=== PATIENT | female | born 1960 | race Caucasian/White ===

== ENCOUNTER → 2016-06-28 | Outpatient (CLI) | payer BC, OTHER ==
[~2016-06-28] MED LIST: ACET-1600 PO; ESTR1PAT10 TD; PROG100C4 PO
[2016-06-28 11:03] LABS: BLOOD UREA NITROGEN 13 mg/dL (7-18)
== END | disposition home or self-care (01) ==
LOC: STAR 09:54
PROVIDERS: ATTEND Orthopaedic Surgery
DX: Z01.818 Encounter for other preprocedural examination (principal); M17.12 Unilateral primary osteoarthritis, left knee
CPT/HCPCS: 36415; 80048; 81003; 85025; 87081; 93005

== ENCOUNTER 2016-07-10 05:36 | Inpatient (IN) | payer BC, OTHER ==
[2016-06-28 10:16] VITALS: BP 124/81
[~2016-07-10] VITALS: Ht 167.6 cm; Wt 77.5 kg
[2016-07-10] MEDS ORDERED: VANCOMYCIN PER PHARMACY MC PRN (06:00)
[2016-07-10] MEDS ORDERED: VANCOMYCIN 1,400 MG in SODIUM CHLORIDE 0.9% 250 ML IV ONE (06:00)
[2016-07-10] MEDS ORDERED: LACTATED RINGERS 1,000 ML IV SCH (06:07)
[2016-07-10] MEDS ORDERED: ROPIvacaine/PF 0.5%, 30 ML ONE (06:15)
[2016-07-10] MEDS ORDERED: morphine SULFATE/PF 1 MG/ML, 10ML ONE (06:24)
[2016-07-10] MEDS ORDERED: TRANEXAMIC ACID 100 MG/ML, 10ML ONE (06:24)
[2016-07-10] MEDS ORDERED: ROPIvacaine/PF 0.2%, 20 ML ONE (06:24)
[2016-07-10] MEDS ORDERED: KETOROLAC 60 MG/2 ML ONE (06:24)
[2016-07-10] MEDS ORDERED: EPINEPHRINE 1 MG/ML, 1ML ONE (06:25)
[2016-07-10] MEDS ORDERED: VANCOMYCIN 1,000 MG ONE (06:25)
[2016-07-10] MEDS ORDERED: NEOSPORIN OINT, 15GM ONE (06:25)
[2016-07-10] MEDS ORDERED: MIDAZOLAM 1 MG/ML, 2ML ONE (06:26)
[2016-07-10] MEDS ORDERED: FENTANYL PF 250 MCG/5ML ONE (06:26)
[2016-07-10] MEDS ORDERED: SCOPOLAMINE PATCH, 1.5MG PATCH.TD72 TD ONE (06:49)
[2016-07-10] MEDS ORDERED: CEFAZOLIN 1,000 MG ONE (07:05)
[2016-07-10] MEDS ORDERED: PROPOFOL 10 MG/ML, 20ML ONE (07:05)
[2016-07-10] MEDS ORDERED: DEXAMETHASONE 4 MG/ML, 1ML ONE (07:05)
[2016-07-10] MEDS ORDERED: ONDANSETRON 2MG/ML, 2ML ONE (07:05)
[2016-07-10] MEDS ORDERED: ROCURONIUM 10 MG/ML ONE (07:05)
[2016-07-10] MEDS ORDERED: METOCLOPRAMIDE 5 MG/ML, 2ML IV PRN (08:00)
[2016-07-10] MEDS ORDERED: ONDANSETRON 2MG/ML, 2ML IVPush PRN (08:00)
[2016-07-10] MEDS ORDERED: LABETALOL 5MG/ML, 20ML IV PRN (08:00)
[2016-07-10] MEDS ORDERED: OXYcodone 5 MG/5 ML ORAL.SOL UDC PO PRN (08:00)
[2016-07-10] MEDS ORDERED: hydrALAzine 20 MG/ML, 1ML IV PRN (08:00)
[2016-07-10] MEDS ORDERED: MEPERIDINE/PF 25MG/0.5ML IVPush PRN (08:00)
[2016-07-10] MEDS ORDERED: PROMETHAZINE 25 MG/ML, 1ML IV PRN (08:00)
[2016-07-10] MEDS ORDERED: MEPERIDINE/PF 25MG/0.5ML ONE (08:55)
[2016-07-10] MEDS ORDERED: HYDROmorphone 1 MG/ML, 1ML ONE ×2 (08:55→09:27)
[2016-07-10] MEDS ORDERED: FENTANYL PF 100 MCG/2ML ONE (08:55)
[2016-07-10] MEDS ORDERED: OXYcodone 5 MG/5 ML ORAL.SOL UDC ONE (08:56)
[2016-07-10] MEDS: HYDROmorphone 1 MG/ML, 1ML IV PRN ×4 (09:01→09:58)
[2016-07-10] MEDS: FENTANYL PF 100 MCG/2ML IV PRN ×2 (09:10→09:20)
[2016-07-10] MEDS ORDERED: DIAZEPAM 5 MG/ML, 2ML ONE (10:17)
[2016-07-10] MEDS ORDERED: DIAZEPAM 5 MG/ML, 2ML IV ONE (10:30)
[2016-07-10 10:51] VITALS: BP 106/70
[2016-07-10] MEDS ORDERED: MAGNESIUM HYDROXIDE 8%, 30ML UDC PO PRN (11:00)
[2016-07-10] MEDS ORDERED: ZOLPIDEM 5MG TABLET PO PRN (11:00)
[2016-07-10] MEDS ORDERED: LORazepam 2 MG/ML, 1ML IV PRN (11:00)
[2016-07-10] MEDS ORDERED: DIPHENHYDRAMINE 25 MG CAPSULE PO PRN (11:00)
[2016-07-10] MEDS ORDERED: LORazepam 1MG TABLET PO PRN (11:00)
[2016-07-10] MEDS ORDERED: BISACODYL 10 MG SUPP PR PRN (11:00)
[2016-07-10] MEDS ORDERED: ALUMINUM/MAG/SIMETHICONE 30 ML UDC PO PRN (11:00)
[2016-07-10] MEDS ORDERED: ACETAMINOPHEN 325 MG TABLET PO PRN (11:30)
[2016-07-10] MEDS ORDERED: HYDROcodone/APAP 7.5-325MG/15ML UDC PO PRN (11:30)
[2016-07-10] MEDS ORDERED: SENNA/DOCUSATE TABLET PO PRN (11:30)
[2016-07-10] MEDS: ONDANSETRON 2MG/ML, 2ML IVPush PRN ×3 (12:53→21:59)
[2016-07-10 14:00] VITALS: BP 113/74
[2016-07-10] MEDS: POTASSIUM CHLORIDE 10 MEQ in D5%-0.45% NACL 1,000 ML IV SCH (16:28)
[2016-07-10] MEDS: CEFAZOLIN PMX 1GM/50ML 50 ML IVPB SCH ×2 (16:28→23:37)
[2016-07-10] MEDS: morphine SULFATE 10 MG/ML, 1ML IVPush PRN ×2 (18:45→22:09)
[2016-07-10] MEDS: DOCUSATE 100 MG CAPSULE PO SCH (19:39)
[2016-07-10] MEDS: SODIUM CHLORIDE FLUSH 10ML SYR IVF SCH (19:39)
[2016-07-10 20:43] VITALS: BP 109/65
[2016-07-10] MEDS: DIAZEPAM 5 MG TABLET PO PRN (23:57)
[2016-07-11 00:03] VITALS: BP 113/66
[2016-07-11] MEDS: morphine SULFATE 10 MG/ML, 1ML IVPush PRN ×2 (02:08→08:38)
[2016-07-11 03:34] VITALS: BP 95/59
[2016-07-11] MEDS: OXYcodone 5 MG/5 ML ORAL.SOL UDC PO PRN ×4 (05:33→17:56)
[2016-07-11] MEDS: ENOXAPARIN 30 MG/0.3 ML SQ SCH ×2 (05:33→17:57)
[2016-07-11] MEDS: ONDANSETRON 2MG/ML, 2ML IVPush PRN ×4 (05:33→17:56)
[2016-07-11] MEDS: DIAZEPAM 5 MG TABLET PO PRN ×2 (05:33→10:46)
[2016-07-11] MEDS: SODIUM CHLORIDE FLUSH 10ML SYR IVF SCH (08:29)
[2016-07-11] MEDS: DOCUSATE 100 MG CAPSULE PO SCH (08:30)
[2016-07-11 08:32] VITALS: BP 115/66
[2016-07-11] MEDS ORDERED: MULTIVITAMINS/MINERALS TABLET PO SCH (09:00)
[2016-07-11] MEDS ORDERED: KETOROLAC 30 MG/1 ML IV SCH (11:30)
[2016-07-11] MEDS: POTASSIUM CHLORIDE 10 MEQ in D5%-0.45% NACL 1,000 ML IV SCH (12:00)
[2016-07-11 13:10] VITALS: BP 113/64
[2016-07-11] MEDS ORDERED: OXYC1TAB9 PO (17:23)
[2016-07-11] MEDS ORDERED: ASPI-650 PO (17:26)
[2016-07-11] MEDS ORDERED: ONDA-39 PO (17:29)
== END 2016-07-11 18:26 | disposition home or self-care (01) | DRG 470 ==
LOC: ORIP 05:36 → 4NOR 10:40
PROVIDERS: ADMIT Orthopaedic Surgery; ATTEND Orthopaedic Surgery
PROC: 0SRD0J9 Replacement of Left Knee Joint with Synthetic Substitute, Cemented, Open Approach (ICD-10-PCS; principal; 2016-07-10 07:00)
DX: M17.12 Unilateral primary osteoarthritis, left knee (principal); Z88.4 Allergy status to anesthetic agent; Z88.0 Allergy status to penicillin; Z79.899 Other long term (current) drug therapy
CPT/HCPCS: C1713; J0171; J0690; J1100; J1170; J1650; J1885; J2175; J2250; J2274; J2405; J2704; J2795; J3010; J3360; J3370; J3480; C1776; J2270; J7050; J7120

== ENCOUNTER 2016-10-05 05:22 | Day surgery (SDC) | payer OTHER ==
[2016-10-04 13:30] VITALS: BP 107/69
[~2016-10-05] VITALS: Ht 167.6 cm; Wt 77.0 kg
[~2016-10-05 05:22] MED LIST changes: +ASPI-650 PO; +ONDA4TAB12 PO; +OXYC1TAB9 PO; +PROG100C16 PO; -PROG100C4 PO
[2016-10-05] MEDS ORDERED: LIDOCAINE 1%, 2ML ONE (06:04)
[2016-10-05] MEDS ORDERED: BUPIVACAINE/PF 0.25% ONE (06:11)
[2016-10-05] MEDS ORDERED: LACTATED RINGERS 1,000 ML IV SCH (06:11)
[2016-10-05] MEDS ORDERED: LIDOCAINE-MPF 2% ,5ML ONE (06:12)
[2016-10-05] MEDS ORDERED: MIDAZOLAM 1 MG/ML, 2ML ONE (06:19)
[2016-10-05] MEDS ORDERED: FENTANYL PF 100 MCG/2ML ONE (06:19)
[2016-10-05] MEDS ORDERED: LIDOCAINE 1%, 2ML SQ PRN (06:30)
[2016-10-05] MEDS ORDERED: ROPIvacaine/PF 0.5%, 30 ML ONE (06:53)
[2016-10-05] MEDS ORDERED: ROPIvacaine/PF 0.5%, 20 ML ONE (06:53)
[2016-10-05] MEDS ORDERED: methylPREDNISolone*ACETATE* 80 MG/ML ONE (06:53)
[2016-10-05] MEDS ORDERED: ONDANSETRON 2MG/ML, 2ML ONE (07:01)
[2016-10-05] MEDS ORDERED: KETOROLAC 30 MG/1 ML ONE (07:01)
[2016-10-05] MEDS ORDERED: DEXAMETHASONE 4 MG/ML, 1ML ONE (07:01)
[2016-10-05] MEDS ORDERED: PROPOFOL 10 MG/ML, 20ML ONE (07:01)
[2016-10-05] MEDS ORDERED: ROPIvacaine/PF 0.2%, 100ML 550 ML (check volume) INJ ONE (07:30)
== END 2016-10-05 09:00 ==
LOC: OUT 05:22
PROVIDERS: ATTEND Orthopaedic Surgery
DX: M24.662 Ankylosis, left knee (principal); Z96.652 Presence of left artificial knee joint; Z88.8 Allergy status to other drugs, medicaments and biological substances; Z88.0 Allergy status to penicillin; Z87.39 Personal history of other diseases of the musculoskeletal system and connective tissue
CPT/HCPCS: 20610; 27570; 73560; 76000; J1040; J1100; J1885; J2250; J2405; J2704; J2795; J3010; J3490; J7120